=== PATIENT | female | born 1975 | race Hispanic/Latino ===

== ENCOUNTER 2017-04-25 17:44 | Emergency (ER) | payer SELFPAY ==
[2017-04-25 17:56] VITALS: TEMP 98.8
[2017-04-25 20:08] LABS: ACETAMINOPHEN < 10.0 ug/ml (10.0-20.0); SALICYLATE < 1 mg/dL (2.0-20.0)
[2017-04-25 20:09] LABS: ALB/GLOB RATIO 1.1 (1.1-1.8); ALBUMIN 4.5 g/dL (3.0-4.8); ALT/SGPT 27 U/L (7-56); AST/SGOT 28 U/L (14-36); BLOOD UREA NITROGEN 12 mg/dL (7-21); CALCIUM 10.2 mg/dL (8.4-10.5); GFR AFRICAN-AMERICAN > 60; GFR NON-AFRICAN AMERICAN > 60
[2017-04-25 20:11] LABS: BASO # 0.01 K/mm3 (0.0-2.0); BASO % 0.2 % (0.0-3.0); EOS % 0.6 % (1.5-5.0); GRAN # 2.43 (1.4-6.5); GRAN % 45.1 % (50.0-68.0); HEMOGLOBIN 12.7 g/dL (12.0-16.0); LYMPH # 2.4 (1.2-3.4); LYMPH % 44.4 % (22.0-35.0); MEAN CELL VOLUME 92.7 fl (80.0-105.0); MEAN CORPUSCULAR HEMOGLOBIN 30.8 pg (25.0-35.0); MEAN CORPUSCULAR HGB CONC 33.2 g/dl (31.0-37.0); MONO # 0.5 (0.1-0.6); MONO % 9.7 % (1.0-6.0); RBC 4.12 10^6/uL (3.5-6.1); RED CELL DISTRIBUTION WIDTH 13.9 % (11.5-14.5); WHITE BLOOD COUNT 5.4 10^3/ul (4.5-11.0)
[2017-04-25 20:16] LABS: URINE BILIRUBIN NEGATIVE (NEGATIVE); URINE BLOOD TRACE-INTACT (NEGATIVE); URINE GLUCOSE (UA) NEGATIVE (NEGATIVE); URINE LEUKOCYTE ESTERASE NEGATIVE Leu/uL (NEGATIVE); URINE NITRATE NEGATIVE (NEGATIVE); URINE PROTEIN TRACE mg/dL (<30 mg/dL)
[2017-04-25 20:18] LABS: URINE APPEARANCE CLEAR (CLEAR); URINE COLOR YELLOW (YELLOW)
--- NOTE | 2017-04-25 20:21 | ED PDOC ---
Arrival/HPI - General Chief Complaint: Med Refill Time Seen by Provider: 04/25/17 19:36 Historian: Patient - History of Present Illness Narrative History of Present Illness (Text): 04/25/17 20:19 41-year-old female with a history of depression presents today requesting a refill of her Remeron. Patient states she's been taking Remeron for the past year intermittently for depression and for difficulty with sleep. Patient states she has been having difficulty sleeping for the past 4 days. Patient states she has been feeling slightly depressed but states that she just wants to sleep. Patient states an hour she closes her eyes she just has racing thoughts making it difficult for her to sleep. Patient denies chest pain or shortness of breath. Denies headache dizziness or weakness. Patient states she was hospitalized approximately one year ago and was given Remeron prescription upon discharge. Patient states for the past year she has been intermittently utilizing that prescription for help with sleep. Patient states she now has officially run out of the prescription and needs a refill. Time/Duration: Other (4 days) Symptom Onset: Gradual Past Medical History - Provider Review Nursing Documentation Reviewed: Yes - Travel History Have you recently traveled outside [place] w/in the past 3 mons?: No - Infectious Disease Hx of Infectious Diseases: None - Reproductive Menopause: No - Psychiatric Hx Depression: Yes Hx Substance Use: No - Anesthesia Hx Anesthesia: No Family/Social History - Physician Review Nursing Documentation Reviewed: Yes Family/Social History: Unknown Family HX Smoking Status: Unknown If Ever Smoked Hx Alcohol Use: Yes Frequency of alcohol use: Socially Hx Substance Use: No Allergies/Home Meds Allergies/Adverse Reactions: Allergies No Known Allergies Allergy (Verified 04/25/17 17:56) Home Medications: Home Meds Medication Instructions Recorded Confirmed Mirtazapine [Remeron] 30 mg PO HS 04/25/17 04/25/17 Review of Systems - Review of Systems Constitutional: absent: Fatigue, Fevers ENT: absent: Sore Throat, Sinus Congestion Respiratory: absent: SOB, Cough Cardiovascular: absent: Chest Pain, Palpitations Gastrointestinal: absent: Abdominal Pain, Nausea, Vomiting Genitourinary Female: absent: Dysuria, Frequency, Hematuria Musculoskeletal: absent: Arthralgias, Back Pain, Neck Pain Skin: absent: Rash, Pruritis Neurological: absent: Headache, Dizziness Psychiatric: Depression. absent: Anxiety, Suicidal Ideation Physical Exam Vital Signs Reviewed: Yes Vital Signs Temp Pulse Resp BP Pulse Ox 04/25/17 21:34 76 18 124/76 98 04/25/17 17:51 98.8 F 88 20 120/74 99 Temperature: Afebrile Blood Pressure: Normal Pulse: Regular Respiratory Rate: Normal Appearance: Positive for: Well-Appearing, Non-Toxic, Comfortable Pain Distress: None Mental Status: Positive for: Alert and Oriented X 3 - Systems Exam Head: Present: Atraumatic Mouth: Present: Moist Mucous Membranes Respiratory/Chest: Present: Clear to Auscultation Cardiovascular: Present: Regular Rate and Rhythm Abdomen: No: Tenderness Upper Extremity: Present: Normal ROM Lower Extremity: Present: Normal ROM Neurological: Present: GCS=15, Speech Normal Skin: Present: Warm, Dry, Normal Color. No: Rashes Psychiatric: Present: Alert, Oriented x 3 Medical Decision Making ED Course and Treatment: 04/25/17 20:21 Patient is nontoxic well-appearing in no distress vital signs are stable. CBC WNL CMP WNL Tylenol WNL Salicylate WNL Alcohol level WNL Urine drug screen wnl UA; + blood pt is medically cleared for PES evaluation Patient was seen and evaluated by PES screener: [email or web address] Impression; depression, insomnia Follow up with the mental health center. increase fluids return if symptoms worsen,persist or if new symptoms develop. - Lab Interpretations Lab Results: 04/25/17 19:50 04/25/17 19:50 Lab Results 04/25/17 19:50: Urine HCG, Qual Negative 04/25/17 19:50: WBC 5.4, RBC 4.12, Hgb 12.7, Hct 38.2, MCV 92.7, MCH 30.8, MCHC 33.2, RDW 13.9, Plt Count 281, MPV 11.0, Gran % 45.1 L, Lymph % (Auto) 44.4 H, [place] % (Auto) 9.7 H, Eos % (Auto) 0.6 L, Baso % (Auto) 0.2, Gran # 2.43, Lymph # (Auto) 2.4, [place] # (Auto) 0.5, Eos # (Auto) 0.0, Baso # (Auto) 0.01 04/25/17 19:50: Alcohol, Quantitative < 10 04/25/17 19:50: Salicylates < 1 L, Acetaminophen < 10.0 L 04/25/17 19:50: Urine Opiates Screen Negative, Urine Methadone Screen Negative, Ur Barbiturates Screen Negative, Ur Phencyclidine Scrn Negative, Ur Amphetamines Screen Negative, U Benzodiazepines Scrn Negative, U Oth Cocaine Metabols Negative, U Cannabinoids Screen Negative 04/25/17 19:50: Sodium 144, Potassium 3.8, Chloride 103, Carbon Dioxide 28, Anion Gap 17, BUN 12, Creatinine 0.9, Est GFR ( Amer) > 60, Est GFR (Non- Af Amer) > 60, Random Glucose 97, Calcium 10.2, Total Bilirubin 0.4, AST 28, ALT 27, Alkaline Phosphatase 55, Total Protein 8.6 H, Albumin 4.5, Globulin 4.1 , Albumin/Globulin Ratio 1.1 04/25/17 19:50: Urine Color Yellow, Urine Appearance Clear, Urine pH 6.0, Ur Specific [place] >= 1.030, Urine Protein Trace H, Urine Glucose (UA) Negative, Urine Ketones Trace H, Urine Blood Trace-intact H, Urine Nitrate Negative, Urine Bilirubin Negative, Urine Urobilinogen 1.0 H, Ur Leukocyte Esterase Negative, Urine RBC 1 - 3, Urine WBC 2 - 5, Ur Epithelial Cells 4 - 5, Urine Bacteria Mod Disposition/Present on Arrival - Present on Arrival Any Indicators Present on Arrival: No History of DVT/PE: No History of Uncontrolled Diabetes: No Urinary Catheter: No History of Decub. Ulcer: No History Surgical Site Infection Following: None - Disposition Have Diagnosis and Disposition been Completed?: Yes Diagnosis: Depression, Insomnia Disposition: HOME/ ROUTINE Disposition Time: 21:27 Patient Plan: Discharge Condition: GOOD Discharge Instructions (ExitCare): Insomnia Additional Instructions: Follow up with the mental health center. increase fluids return if symptoms worsen,persist or if new symptoms develop. Referrals: [facility] [Outside] - [place] up [place] [facility] [place] - Follow up with primary Forms: [employer] (Thai), WORK NOTE
[2017-04-25 20:23] LABS: URINE BACTERIA MOD (NEG)
[2017-04-25 20:25] LABS: BARBITURATES, UR NEGATIVE (NEGATIVE); BENZODIAZEPINES, UR NEGATIVE (NEGATIVE); OPIATES, UR NEGATIVE (NEGATIVE); PHENCYCLIDINE, UR NEGATIVE (NEGATIVE)
[2017-04-25 21:34] VITALS: BP 124/76; PULSE 76; RESP 18; O2SAT 98
== END 2017-04-25 21:34 | disposition home or self-care (01) ==
LOC: ED 17:44
DX: F32.9 Major depressive disorder, single episode, unspecified (principal); G47.00 Insomnia, unspecified
CPT/HCPCS: 80053; 81001; 84703; 85025; 90791; 99282; G0480